=== PATIENT | female | born 1970 ===

== ENCOUNTER 2019-10-05 08:51 | Outpatient (CLI) | payer OTHER | END 2019-10-05 08:57 | disposition home or self-care (01) | LOC: LAB 08:51 | PROVIDERS: ATTEND Obstetrics & Gynecology | DX: Z20.828 Contact with and (suspected) exposure to other viral communicable diseases (principal) ==

== ENCOUNTER 2019-10-06 08:45 | Inpatient (IN) | payer OTHER ==
[~2019-10-06] VITALS: Ht 160 cm; Wt 59.0 kg
== END 2019-10-11 11:36 | DRG 742 ==
LOC: OB/GYN 10-08 07:40 → O/R 10-08 07:40 → OB/GYN 10-08 08:45 → EDBD 10-08 08:45 → O/R 10-08 08:45 → OB/GYN 10-08 10:30
PROVIDERS: ADMIT Obstetrics & Gynecology; ATTEND Obstetrics & Gynecology
PROC: 0UB70ZZ Excision of Bilateral Fallopian Tubes, Open Approach (ICD-10-PCS; 2019-10-08)
PROC: 0UT90ZZ Resection of Uterus, Open Approach (ICD-10-PCS; principal; 2019-10-08 10:30)
DX: D25.0 Submucous leiomyoma of uterus (principal); D62 Acute posthemorrhagic anemia; D25.1 Intramural leiomyoma of uterus; N80.0 Endometriosis of uterus; N88.8 Other specified noninflammatory disorders of cervix uteri; N83.8 Other noninflammatory disorders of ovary, fallopian tube and broad ligament